=== PATIENT | male | born 1980 | race Caucasian/White ===

== ENCOUNTER 2023-11-29 05:43 | Emergency (ER) | payer OTHER, SELFPAY ==
[2023-11-29] VITALS (7 sets, daily range): BP systolic 97–125; BP diastolic 82–106; BMI 26.2
--- NOTE | 2023-11-29 06:16 | ED.GENMED ---
History of Present Illness
General
Chief Complaint: Abdominal Pain
Source: patient
Exam Limitations: none
Time Seen by Provider: 11/29/23 06:13
Travel History
Have you had any contact with someone who has COVID-19?: No
Do you have any symptoms of coronavirus? Fever > 100 degrees, chills, cough, shortness of breath, sore throat, loss of taste or smell, muscle aches, or headache?: No
History of Present Illness
History of Present Illness:
See MDM
Past History
Past History
ED Past Medical History: None
ED Past Surgical History: None
Social History
Tobacco: Non-smoker
Alcohol: None
Personal:
Phy Exam
Physical Exam
Physical Exam:
See MDM
Course
Orders/Labs/Results
Orders:
Orders
11/29/23 06:15
CT Abd/pel Without Iv Or Oral Urgent
Comment:
Reason For Exam: R flank and RLQ pain
Complete Blood Count/With Diff Urgent
Comprehensive Metabolic Panel Urgent
Lactate Level [Lactic Acid] Urgent
Lipase Urgent
HYDROmorphone [Dilaudid] 1 mg IV NOW STA
Ketorolac [Toradol] 30 mg IV NOW STA
Ondansetron Injectable [Zofran] 4 mg IV NOW STA
11/29/23 07:02
HYDROmorphone [Dilaudid] 1 mg IV NOW STA
11/29/23 07:06
0.9% Sodium Chloride 1000 ml [Nss] 1,000 ml IV BOLUS
11/29/23 07:53
Ketorolac [Toradol] 30 mg IV NOW STA
Abnormal Lab Results
11/29/23
06:15
RBC 4.52 L 10^6/uL
(4.70-6.10)
MCH 32.7 H pg
(27.0-31.0)
Absolute Lymphs (auto) 4.0 H 10^3/uL
(1.2-3.4)
Absolute Monos (auto) 0.7 H 10^3/uL
(0.1-0.6)
Chloride 111 H mmol/L
(98-107)
Carbon Dioxide 21 L mmol/L
(22-30)
Glucose 106 H mg/dl
(70-99)
11/29/23 06:15
11/29/23 06:15
Vital Signs
Initial and Last Documented VS:
Initial Vital Signs
Temp Pulse Resp BP Pulse Ox
98.6 F 70 17 120/82 98
11/29/23 05:48 11/29/23 05:48 11/29/23 05:48 11/29/23 05:48 11/29/23 05:48
Last Documented Vital Signs
Temp Pulse Resp BP Pulse Ox
98.6 F 65 16 97/86 97
11/29/23 05:48 11/29/23 06:53 11/29/23 06:53 11/29/23 08:00 11/29/23 08:00
MDM/Problems Addressed
Differential Diagnosis Includes:
HPI and MDM Narrative:
42-year-old male presenting with right flank and right lower quadrant pain. Patient states he woke up with this twisting sensation. I was called to the room for active vomiting. Patient does have point tenderness to right lower quadrant. Will
provide pain medicine and nausea medicine. Given the sudden onset, will send to CT scanner to rule out kidney stone
Physical exam
General: Uncomfortable, cannot find comfortable position
HEENT: protecting airway
Neck: appears supple
CV: No evidence of cyanosis
Resp: No accessory muscle use
Abd: Non-distended. Point tenderness to right lower quadrant
Extremities: No deformities
Neuro: alert
Psych: Normal affect
Skin: Intact
Problems Addressed including Acute and Chronic Conditions affecting care:
1. Abdominal pain
Acuity: acute
Prognosis: unstable
Details: Patient given Dilaudid and Toradol. Will obtain CT scan
2. Vomiting
Acuity: acute
Prognosis: unstable
Details: Patient requiring IV Zofran
Updates
CT consistent with obstructive kidney stone. It is distal. After multiple doses of pain medicine, patient's clinical exam has drastically improved. He is ambulating without difficulty. Discussed expectant management and return precautions
Differential Diagnosis (but not limited to): Colitis, appendicitis, kidney stone
Testing considered: CT with contrast
Drug therapy (if applicable): OTC meds, please see d/c instruction regarding Rx drugs
Amount and/or Complexity of Data Reviewed
Clinical info obtained from: Patient
External data reviewed: N/A
Labs I independently reviewed (but not limited to): White blood cell count normal
Radiology: The CT scan was personally and independently reviewed. In addition, official CT report reviewed.
Pulse Ox: not hypoxic
EKG independently reviewed: N/A
Sculpture Instructor: N/A
Critical Care: N/A
Risk of Complication:
Social Determinants of health: Good social support
Discussed with other providers: N/A
Escalation of Care includes Admit/Obs: After being observed in the Emergency Department, pt stable for discharge.
Occasional wrong word or 'sound a like' substitutions may have occurred due to the inherent limitations of voice recognition software. Read the chart carefully and recognize, using context, where substitutions have occurred.
*Critical Care Note
Total Time (30-74mins, 75-104mins- exclusive of procedures): Not Applicable
ED Attending Note
-
Portions of this chart may have been created with voice recognition software.� Occasional wrong word or��sound alike� substitutions may have occurred due to the inherent limitations of voice recognition software.
Discharge Plan
Departure
Patient Disposition: Home (Routine Discharge)
Date of Disposition: 11/29/23
Time of Disposition: 09:31
Patient with high blood pressure during this ER visit?: No
Discharge Problem:
Kidney stone on right side
Instructions: Kidney Stones (DC)
Prescriptions:
New
tamsulosin [Flomax] 0.4 mg Capsule
0.4 mg PO DAILY Qty: 14 0RF
diclofenac potassium 50 mg tablet
50 mg PO BID Qty: 20 0RF
ondansetron 4 mg Tablet,Disintegrating
4 mg PO BIDPRN PRN (Reason: nausea/vomiting) Qty: 10 0RF
oxycodone 5 mg tablet
5 mg PO Q8H PRN (Reason: Pain) Qty: 14 0RF
No Action
clindamycin HCl 300 MG capsule
300 mg PO TID
acetaminophen-codeine 1 TABLET tablet
1 tab PO Q4HPRN PRN (Reason: pain)
naproxen 500 MG tablet,delayed release (DR/EC)
500 mg PO BID Qty: 12 0RF
Referrals:
Rob Lopez Jr., MD [Active] -
UNKNOWN - PT DOES,NOT KNOW [Family Provider] -
Activity Restrictions/Additional Instructions:
Please return for any worsening symptoms.
You may return at any time if you have further concerns.
Please follow up with your doctor at the first available appointment, preferably this week.
Please make an appointment to see the urologist if symptoms persist.
You were given a prescription for narcotics. If you require this pain medicine, please take a daily [id number] stool softener to avoid constipation.
Thank you for choosing [facility].
Interventions
Interventions:
*Risk Screen - Suicide Last Done: 11/29/23 06:47
*Neglect/Abuse Screening Last Done: 11/29/23 06:47
ED- Fall Risk Assessment Last Done: 11/29/23 06:46
*ED COVID-19 Vaccine History Last Done: 11/29/23 07:22
YT-Bnjzip-Qmchyxnfus Assessment Last Done: 11/29/23 06:46
Discharge Date and Time
Print Language: MOHAWK
[2023-11-29 06:23] LABS: % Basophils 0.6 % (0-2); % Eosinophils 3.8 % (0-6); % Immature Granulocytes 0.3 % (0-0.5); % Lymphocytes 40.6 % (20.5-51.1); % Monocytes 7.1 % (1.7-9.3); % Neutrophils 47.6 % (42.2-75.2); Absolute Basophils 0.1 10^3/uL (0-0.2); Absolute Eosinophils 0.4 10^3/uL (0-0.7); Absolute Monocytes 0.7 10^3/uL (0.1-0.6); Absolute Neutrophils 4.7 10^3/uL (1.4-6.5); Hematocrit 41.8 % (39.0-52.0); Hemoglobin 14.8 g/dL (13.0-18.0); Mean Corp Hgb Conc. 35.4 g/dL (33.0-37.0); Mean Corpuscular Hgb 32.7 pg (27.0-31.0); Mean Corpuscular Volume 92.5 fL (80.0-94.0); Mean Platelet Volume 9.2 fL (7.4-10.4); Nucleated Red Blood Cells % 0 % (-); Platelet Count 241 10^3/uL (130-400); Red Blood Cell Count 4.52 10^6/uL (4.70-6.10); Red Cell Dist. Width 12.2 % (11.5-14.5); White Blood Cell Count 9.9 10^3/uL (4.8-10.8)
[2023-11-29] MEDS: TORADOL 30 MG IV ×2 (06:24→08:08)
[2023-11-29] MEDS: ZOFRAN 4 MG IV (06:24)
[2023-11-29] MEDS: DILAUDID 1 MG IV ×2 (06:24→07:11)
[2023-11-29 06:35] LABS: Lactic Acid 1.1 mmol/L (0.7-2.0)
[2023-11-29 06:42] LABS: ALT (SGPT) 32 U/L (0-50); AST (SGOT) 32 U/L (17-59); Albumin 4.2 g/dl (3.5-5.0); Alkaline Phosphatase 71 U/L (38-126); Blood Urea Nitrogen 16 mg/dl (9-20); Calcium 9.3 mg/dl (8.4-10.2); Carbon Dioxide 21 mmol/L (22-30); Chloride 111 mmol/L (98-107); Glucose 106 mg/dl (70-99); Lipase 89 U/L (23-300); Potassium 3.8 mmol/L (3.5-5.1); Sodium 139 mmol/L (135-145); Total Bilirubin 0.8 mg/dl (0.2-1.3); Total Protein 6.8 g/dl (6.3-8.2); eGFR > 60.00
[2023-11-29] MEDS: NSS 1000 IV (07:12)
== END 2023-11-29 09:35 | disposition home or self-care (01) ==
LOC: EMR 05:43
PROVIDERS: EMERGENCY PHYSICIAN Student in an Organized Health Care Education/Training Program
DX: N13.2 Hydronephrosis with renal and ureteral calculous obstruction (principal)
CPT/HCPCS: 99284; 96374; 96375 ×2; 96361; 96376 ×2; 74176; 80053; 83605; 83690; 85025

== ENCOUNTER 2025-02-10 15:01 | Emergency (ER) | payer OTHER, SELFPAY ==
[2025-02-10 15:07] VITALS: BP 126/81
[2025-02-10 15:53] LABS: % Basophils 0.8 % (0-2); % Eosinophils 1.6 % (0-6); % Immature Granulocytes 0.7 % (0-0.5); % Lymphocytes 25.9 % (20.5-51.1); % Monocytes 6.1 % (1.7-9.3); % Neutrophils 64.9 % (42.2-75.2); Absolute Basophils 0.1 10^3/uL (0-0.2); Absolute Eosinophils 0.1 10^3/uL (0-0.7); Absolute Immature Granulocytes 0.1 10^3/uL (0-0.05); Absolute Lymphocytes 2.3 10^3/uL (1.2-3.4); Absolute Monocytes 0.5 10^3/uL (0.1-0.6); Absolute Neutrophils 5.6 10^3/uL (1.4-6.5); Hematocrit 42.5 % (39.0-52.0); Hemoglobin 14.8 g/dL (13.0-18.0); Mean Corp Hgb Conc. 34.8 g/dL (33.0-37.0); Mean Corpuscular Hgb 33.4 pg (27.0-31.0); Mean Corpuscular Volume 95.9 fL (80.0-94.0); Mean Platelet Volume 9.1 fL (7.4-10.4); Nucleated Red Blood Cells % 0 % (-); Platelet Count 203 10^3/uL (130-400); Red Blood Cell Count 4.43 10^6/uL (4.70-6.10); Red Cell Dist. Width 12.5 % (11.5-14.5); White Blood Cell Count 8.7 10^3/uL (4.8-10.8)
[2025-02-10 16:00] LABS: ALT (SGPT) 43 U/L (0-50); AST (SGOT) 39 U/L (17-59); Albumin 4.2 g/dl (3.5-5.0); Alkaline Phosphatase 61 U/L (38-126); Blood Urea Nitrogen 17 mg/dl (9-20); Calcium 9.1 mg/dl (8.4-10.2); Carbon Dioxide 22 mmol/L (22-30); Chloride 112 mmol/L (98-107); Glucose 127 mg/dl (70-99); Sodium 141 mmol/L (135-145); Total Bilirubin 0.5 mg/dl (0.2-1.3); Total Protein 6.8 g/dl (6.3-8.2); eGFR > 60.00
--- NOTE | 2025-02-10 16:25 | ED.GENMED ---
History of Present Illness
General
Chief Complaint: Flank Pain
Source: patient
Exam Limitations: none
Time Seen by Provider: 02/10/25 15:14
Nursing documentation reviewed up to this point in time: agreed with
History of Present Illness
History of Present Illness:
Patient is a 44-year-old male with history of kidney stones who presents to the emergency department for evaluation of right flank pain. Patient states that the symptoms started about 1.5 hours prior to arrival while he was sitting in the car. The
pain is described as sharp and stabbing, intermittent in nature, localized to the right lower abdominal region. He denies any radiation of pain into his groin or his back. Patient denies any associated fever, chills, nausea, vomiting, anorexia.
He denies any obvious hematuria or dysuria. Patient did take ibuprofen prior to coming to the emergency department states that his symptoms seem somewhat improved at this time.
Patient denies any chest pain, shortness of breath, or cough. No numbness/tingling or weakness in lower extremities.
The patient reports that the pain feels similar to prior episodes of kidney stones experienced about a year ago. At that time, the patient successfully passed a kidney stone after receiving treatment, which involved intravenous fluids.
Past History
Past History
ED Past Medical History: None
ED Past Surgical History: None
Social History
Tobacco: Non-smoker
Alcohol: None
Personal:
Review of Systems
Review of Systems
Allergies reviewed?: Yes
All Other Systems: ROS reviewed and negative except as documented in HPI and ROS
Phy Exam
Physical Exam
Physical Exam:
Vitals: Patient's vital signs are stable. Afebrile
General: Patient is well appearing, no acute distress
Skin: Warm and dry, no rashes or lesions
Head: Normocephalic, atraumatic
Eyes: Sclera nonicteric. EOMs intact. No nystagmus.
Throat: Protecting airway
Neck: Normal ROM, no cervical spine tenderness, no meningismus
Cardiac: Regular rate and rhythm, no murmurs.
Pulm: Normal respiratory effort, no wheezes, rales, rhonchi heard on exam
.
Abdomen: Abdomen soft. Mild tenderness in right lower quadrant without rebound tenderness or guarding. Negative Alanis sign. No CVA tenderness. No rash
Extremities: No evidence of cyanosis or edema. Palpable DP pulses bilaterally
Neuro: AAOx3. Grossly intact.
Psychiatric: Normal affect.
Course
Orders/Labs/Results
Orders:
Orders
02/10/25 15:22
Abdomen/Pelvis wo Contrast CT [CT Abd/pelvis Wo Iv Cont] Urgent
Comment:
Reason For Exam: Right flank pain, hx kidney stones
02/10/25 15:27
0.9% Sodium Chloride 1000 ml [Nss] 1,000 ml IV BOLUS
02/10/25 15:32
CMP [Comprehensive Metabolic Panel] Urgent
Complete Blood Count/With Diff Urgent
02/10/25 16:30
Ketorolac [Toradol] 15 mg .ROUTE .STK-MED ONE
02/10/25 16:35
Ketorolac [Toradol] 15 mg IV NOW STA
02/10/25 16:41
Urinalysis Reflex To Culture Urgent
Date Specimen was Collected: 02/10/25
Time Specimen was Collected: 16:27
Urine Microscopic Reflex Cult Urgent
02/10/25 18:53
Tamsulosin [Flomax] 0.4 mg PO NOW STA
Abnormal Lab Results
02/10/25 02/10/25
15:32 16:41
RBC 4.43 L 10^6/uL
(4.70-6.10)
MCV 95.9 H fL
(80.0-94.0)
MCH 33.4 H pg
(27.0-31.0)
Abs Immat Gran (auto) 0.1 H 10^3/uL
(0-0.05)
Immature Gran % 0.7 H %
(0-0.5)
Chloride 112 H mmol/L
(98-107)
Glucose 127 H mg/dl
(70-99)
Urine Ketones 1+ A
(Negative)
Ur Occult Blood Reflex 4+ A
(Negative)
Urine RBC 16-20 A /HPF
(0-2)
Urine Bacteria (Reflex) Few A
(Negative)
Urine Albumin (Reflex) 1+ A
(Neg - Trace)
02/10/25 15:32
02/10/25 15:32
Vital Signs
Initial and Last Documented VS:
Initial Vital Signs
Temp Pulse Resp BP Pulse Ox
98.2 F 88 16 126/81 97
02/10/25 15:07 02/10/25 15:07 02/10/25 15:07 02/10/25 15:07 02/10/25 15:07
Last Documented Vital Signs
Temp Pulse Resp BP Pulse Ox
98.2 F 76 16 120/82 97
02/10/25 15:07 02/10/25 17:36 02/10/25 17:36 02/10/25 17:36 02/10/25 17:36
MDM/Problems Addressed
Differential Diagnosis Includes:
Not limited to: Renal colic, UTI/pyelonephritis, inguinal hernia, appendicitis, mesenteric adenitis, constipation, etc.
MDM/Problems Addressed:
The patient is a 44-year-old male with a history of kidney stones, presenting with acute onset right-flank pain. The pain is intermittent, without radiation to the back or groin, and is not associated with nausea, vomiting, fevers, anorexia, or
testicular pain. Vital signs were stable upon arrival, and the physical examination revealed no acute abnormalities. A broad differential diagnosis was considered, including kidney stones, urinary tract infection, pyelonephritis, pancreatitis,
inguinal hernia, and constipation. Lab work, urinalysis, and a non-contrast CT scan of the abdomen were conducted. Will give IV fluids. Patient took Motrin prior to arrival to ED and is currently in no pain and declines any analgesia.
Update: CBC reveals no leukocytosis or other significant abnormalities. Chemistry without renal insufficiency or other significant abnormalities. Urinalysis does show 16-20 RBCs without evidence of infection. CT scan shows no obvious right-sided
obstructing renal calculi or uropathy although does note a possible stone near the left UVJ which I do not suspect to be etiology of current right-sided pain. Also noted enlarged lymph nodes in right lower quadrant consistent with possible
mesenteric adenitis which is at the site of patient's pain.
Patient remains well and comfortable appearing. He is nontoxic. While patient does not have other current viral symptoms, presenting pain may be due to mesenteric adenitis or a recently passed kidney stone on the right side. No evidence of acute
intra-abdominal infectious process and do not suspect vascular catastrophe. Ultimately feel patient stable for discharge home with advised to rest, maintain hydration and take NSAIDs for pain. Will start patient on Flomax for the next few weeks
and refer for outpatient urology follow-up given known renal calculi and possible stone at left UVJ. Strict return precautions discussed. Patient comfortable with plan
Chronic conditions affecting care:
History of kidney stone
Acute Exacerbation and/or Progression of Chronic Illness:
N/A
*Radiology
Radiology exam reviewed: radiology read reviewed
*Pulse Oximetry
Patient hypoxic: no (97% on room air)
*EKG
Interpreted by ED Provider?: NA
*Diesel Machinist Interpretation
Rate: Diesel Machinist- N/A
*Critical Care Note
Total Time (30-74mins, 75-104mins- exclusive of procedures): Not Applicable
ED Attending Note
-
Portions of this chart may have been created with voice recognition software.� Occasional wrong word or��sound alike� substitutions may have occurred due to the inherent limitations of voice recognition software.
Discharge Plan
Departure
Patient Disposition: Home (Routine Discharge)
Date of Disposition: 02/10/25
Time of Disposition: 18:47
Patient with high blood pressure during this ER visit?: No
Condition: Good
Discharge Problem:
Right sided abdominal pain
Instructions: Kidney Stones (DC), Flank Pain (DC)
Prescriptions:
New
tamsulosin [Flomax] 0.4 mg capsule
0.4 mg PO DAILY 14 Days Qty: 14 0RF
No Action
clindamycin HCl 300 MG capsule
300 mg PO TID
acetaminophen-codeine 1 TABLET tablet
1 tab PO Q4HPRN PRN (Reason: pain)
naproxen 500 MG tablet,delayed release (DR/EC)
500 mg PO BID Qty: 12 0RF
tamsulosin [Flomax] 0.4 mg Capsule
0.4 mg PO DAILY Qty: 14 0RF
diclofenac potassium 50 mg tablet
50 mg PO BID Qty: 20 0RF
ondansetron 4 mg Tablet,Disintegrating
4 mg PO BIDPRN PRN (Reason: nausea/vomiting) Qty: 10 0RF
oxycodone 5 mg tablet
5 mg PO Q8H PRN (Reason: Pain) Qty: 14 0RF
Referrals:
Sterling Arguelles MD [Active, Urology] - Call in 1-3 days for appt
NONE,* [Family Provider, Internal Medicine]
Activity Restrictions/Additional Instructions:
RETURN TO THE EMERGENCY DEPARTMENT WITH ANY FEVER, CHILLS, PERSISTENT/WORSENING ABDOMINAL PAIN, DIFFICULTIES WITH URINATION, SEVERE BACK PAIN, INTRACTABLE NAUSEA/VOMITING, NUMBNESS/TINGLING OR WEAKNESS IN EXTREMITIES, OR ANY OTHER CONCERN
- As discussed�there were a few enlarged lymph nodes in your right lower abdomen which may be contributing to symptoms. This is often caused by a viral illness. In addition�there was a possible small kidney stone noted on the left side.
- You should strain your urine. A prescription for Flomax has been sent to your pharmacy. You should take this once a day for the next 2 weeks or until the stone passes. You can take Advil at home as needed for pain. It is important to stay
well-hydrated.
- Follow-up with primary care/urology for further evaluation/management and to ensure that symptoms are improving.
Monitor your symptoms closely and return to the emergency department with any acute worsening/new symptoms or any other concerns
Interventions
Interventions:
*Risk Screen - Suicide Last Done: 02/10/25 15:07
*General Assessment Last Done: 02/10/25 17:40
*Neglect/Abuse Screening Last Done: 02/10/25 15:07
*ED- Fall Risk Assessment Last Done: 02/10/25 17:40
*ED COVID-19 Vaccine History Last Done: 02/10/25 17:40
*Nursing Disposition Last Done: 02/10/25 19:12
OD-Szabru-Qocnrbpipa Assessment Last Done: 02/10/25 16:30
ED-Male Genitourinary Assessment Last Done: 02/10/25 16:30
Discharge Date and Time
Discharge Date/Time: 02/10/25 19:13
Print Language: ICELANDIC
[2025-02-10] MEDS: TORADOL 15 MG IV (16:37)
[2025-02-10 16:38] VITALS: BMI 26.0
[2025-02-10] MEDS: NSS 1000 IV (16:38)
[2025-02-10 17:36] VITALS: BP 120/82
[2025-02-10 18:01] LABS: Urine Albumin 1+ (Neg - Trace); Urine Bilirubin Negative (Negative); Urine Character Cloudy (Clear); Urine Color Yellow; Urine Glucose Negative (Negative); Urine Ketone 1+ (Negative); Urine Leukocyte Negative (Negative); Urine Nitrite Negative (Negative); Urine Occult Blood 4+ (Negative); Urine Specific Gravity 1.025 (<1.030); Urine Urobilinogen 1+ (Neg - 1+)
[2025-02-10 18:02] LABS: Urine Bacteria Few (Negative); Urine Mucus Moderate; Urine Red Blood Cell 16-20 /HPF (0-2); Urine Squamous Cell 0-2 /LPF (Few); Urine White Cell 0-2 /HPF (0-5)
[2025-02-10] MEDS: FLOMAX 0.4 MG PO (19:08)
== END 2025-02-10 19:13 | disposition home or self-care (01) ==
LOC: EMR 15:01
PROVIDERS: Physician Assistant; EMERGENCY PHYSICIAN Student in an Organized Health Care Education/Training Program
DX: R10.9 Unspecified abdominal pain (principal)
CPT/HCPCS: 99285; 96374; 96361; 74176; 80053; 81003; 81015; 85025